=== PATIENT | male | born 1940 | race Two or more races ===

== ENCOUNTER 2024-08-25 12:16 | Inpatient (IN) | payer OTHER ==
[~2024-08-25] VITALS: Ht 152.4 cm; Wt 63.5 kg
[2024-08-25] MEDS ORDERED: LOSARTAN POTASS25 MG PO (12:56)
--- NOTE | 2024-08-25 12:58 | NUR ---
PTE ALERTA Y ORIENTADO X3 REFIERE VENIR CON REFERIDO DEL DR SINGH KIM POR ULCERA EN TYSHAWN DE PIE DERECHO PARA ADMICION. SE MIDEN S/V Y SE UBICA.
[2024-08-25] MEDS ORDERED: PIPERACILLIN/TAZOBACTAM SODIUM 3.375 GM VIAL IV ONE ×2 (13:45→14:16)
[2024-08-25] MEDS ORDERED: FAMOtidine 10 MG/ML (4ML VIAL) IV ONE (13:45)
[2024-08-25] MEDS ORDERED: FAMOTIDINE/PF 20 MG/2 ML VIAL ONE (14:16)
--- NOTE | 2024-08-25 14:27 | NUR ---
SE REALIZA LAB Y SE ADMINISTRA [place] RANDOLPH ORDEN MEDICA BAJO MEDIDAS ASEPTICAS. SE ORIENTA PTE QUIEN REFIERE ENTENDER Y ACEPTAR.
[2024-08-25 15:03] LABS: HEMATOCRIT 38.3 % (39.0-48.0); HEMOGLOBIN 13.3 g/dL (13-16.00); MEAN CELL VOLUME 85.8 fL (80.0-100.00); MEAN CORPUSCULAR HEMOGLOBIN 29.7 pg (27.00-32.0); MEAN CORPUSCULAR HGB CONC 34.7 g/dl (32.0-36.0); PLATELET COUNT 368 K/uL (150-450); RED BLOOD COUNT 4.47 M/uL (4.00-6.00); RED CELL DISTRIBUTION WIDTH 13.1 % (11.5-14.5)
[2024-08-25 15:21] LABS: ALBUMIN 3.3 gm/dL (3.4-5.0); BILIRUBIN TOTAL 0.59 mg/dL (0.3-1.2); CALCIUM 9.6 mg/dL (8.5-10.1); CREATININE SERUM 0.9 mg/dL (0.70-1.30); GFR 80.2; POTASSIUM 4.55 mEq/L (3.5-5.1); TOTAL PROTEIN 7.3 gm/dL (6.4-8.2)
[2024-08-25 15:48] LABS: INR 1.05; PARTIAL THROMBOPLASTIN TIME 28.2 SECONDS (22.0-34.0); PROTHROMBIN TIME 11.4 SECONDS (9.0-11.5)
[2024-08-25] MEDS ORDERED: VANCOMYCIN HCL 1,000 MG VIAL IV SCH (17:59)
[2024-08-25] MEDS ORDERED: ACETAMINOPHEN 500 MG GEL..CAP PO PRN (18:00)
[2024-08-25] MEDS ORDERED: INSULIN LISPRO 1,000 UNIT/10 ML UNITS SUBCUTANEO PRN (18:00)
[2024-08-25] MEDS ORDERED: DEXTROSE 50 % IN WATER 0.5 G/ML DISP.SYRIN IV PRN (18:00)
[2024-08-25] MEDS ORDERED: 0.9 % SODIUM CHLORIDE 1,000 ML IV SCH (18:00)
[2024-08-25] MEDS ORDERED: PIPERACILLIN/TAZOBACTAM SODIUM 3.375 GM in 0.9 % SODIUM CHLORIDE 100 ML IV SCH (18:00)
[2024-08-25 20:37] LABS: PHOSPHOROUS 3.1 mg/dL (2.5-4.9)
[2024-08-25 20:39] LABS: C-REACTIVE PROTEIN 5.45 MG/DL (0.00-0.29)
[2024-08-25 21:15] LABS: PH,URINE 7.5 (5.0-8.0); URINE APPEARANCE Clear; URINE BILIRRUBIN Negative (NEGATIVE); URINE BLOOD Negative; URINE COLOR Yellow; URINE KETONE Negative (NEGATIVE); URINE LEUKOCYTE Negative; URINE NITRATE Negative; URINE PROTEIN Negative (NEGATIVE)
[2024-08-25 21:18] LABS: URINE BACTERIA 8.5 uL (0.0-1933); URINE EPITHELIAL CELLS 2.5 uL (0.0-38.8); URINE WBC 4.4 uL (0.0-23.2)
[2024-08-25 21:22] LABS: URINE GLUCOSE >=1000 MG/DL (NEGATIVE)
[2024-08-26 00:27] VITALS: BP 129/53
[2024-08-26 08:00] VITALS: BP 146/81; O2SAT 93
[2024-08-26] MEDS ORDERED: ENOXAPARIN SODIUM 40 MG/0.4 ML SYRINGE SUBCUTANEO SCH (09:00)
[2024-08-26] MEDS ORDERED: FAMOTIDINE/PF 20 MG in 0.9 % SODIUM CHLORIDE 8 ML IV PUSH SCH (09:00)
[2024-08-26] MEDS ORDERED: INSULIN GLARGINE,HUM.REC.ANLOG 1,000 UNITS/10 ML UNITS SUBCUTANEO SCH (09:00)
[2024-08-26] MEDS ORDERED: LOSARTAN POTASSIUM 25 MG TABLET PO SCH (09:00)
[2024-08-26] MEDS ORDERED: GABAPENTIN 300 MG CAPSULE PO SCH (09:00)
[2024-08-26] MEDS ORDERED: DEXTROSE 50 % IN WATER 0.5 G/ML VIAL IV PRN (13:00)
[2024-08-26 18:00] VITALS: BP 162/63; O2SAT 99
[2024-08-26] MEDS ORDERED: BENZONATATE 200 MG CAPSULE PO SCH (18:21)
[2024-08-26] MEDS ORDERED: GUAIFEN/DEXTROMETHORPHAN/PE 10 ML BLIST.PACK PO SCH (18:22)
[2024-08-26] MEDS ORDERED: hydrALAZINE HCL 20 MG VIAL IV PRN (18:45)
[2024-08-27 02:13] VITALS: BP 173/80; O2SAT 97
[2024-08-27 06:19] LABS: HEMATOCRIT 30.7 % (39.0-48.0); HEMOGLOBIN 10.6 g/dL (13-16.00); MEAN CELL VOLUME 87.2 fL (80.0-100.00); MEAN CORPUSCULAR HEMOGLOBIN 30.1 pg (27.00-32.0); MEAN CORPUSCULAR HGB CONC 34.5 g/dl (32.0-36.0); PLATELET COUNT 291 K/uL (150-450); RED BLOOD COUNT 3.52 M/uL (4.00-6.00); RED CELL DISTRIBUTION WIDTH 12.7 % (11.5-14.5)
[2024-08-27 06:20] LABS: ALBUMIN 1.8 gm/dL (3.4-5.0); BILIRUBIN TOTAL 0.44 mg/dL (0.3-1.2); CREATININE SERUM 0.64 mg/dL (0.70-1.30); GFR 118.86; GLOBULINA 2.1 G/DL (2.4-3.5); MAGNESIUM 1.6 mg/dL (1.8-2.4); PHOSPHOROUS 2.5 mg/dL (2.5-4.9); POTASSIUM 3.06 mEq/L (3.5-5.1); TOTAL PROTEIN 3.9 gm/dL (6.4-8.2)
[2024-08-27 07:02] LABS: C-REACTIVE PROTEIN 3.15 MG/DL (0.00-0.29)
[2024-08-27 07:05] LABS: CALCIUM 6.2 mg/dL (8.5-10.1)
[2024-08-27] MEDS ORDERED: DEXTROSE 5%-LACTATED RINGERS 1,000 ML IV SCH (13:45)
[2024-08-27] MEDS ORDERED: MAGNESIUM SULFATE/D5W 100 ML IV NR (16:00)
[2024-08-27] MEDS ORDERED: AMINO ACIDS 1 EACH TABLET PO SCH (17:00)
[2024-08-27] MEDS ORDERED: POTASSIUM CHLORIDE IN WATER 100 ML IV NR (17:00)
[2024-08-27] MEDS ORDERED: NIFEDIPINE 30 MG TAB.SA.OSM PO SCH (17:00)
[2024-08-27 18:25] VITALS: BP 132/69; O2SAT 99
[2024-08-28 02:32] VITALS: BP 146/75; O2SAT 95
[2024-08-28 08:30] VITALS: BP 114/53
[2024-08-28] MEDS ORDERED: INSULIN LISPRO 1,000 UNIT/10 ML UNITS SUBCUTANEO PRN (10:00)
[2024-08-28] MEDS ORDERED: DEXTROSE 5 % IN WATER 1,000 ML IV SCH (10:00)
[2024-08-28] MEDS ORDERED: PIPERACILLIN/TAZOBACTAM SODIUM 3.375 GM VIAL IV ONE (15:57)
[2024-08-28 17:01] VITALS: BP 148/72; O2SAT 99
[2024-08-29 00:58] VITALS: BP 134/63; O2SAT 95
[2024-08-29 08:16] VITALS: BP 116/70
[2024-08-29 08:47] LABS: BASO % 0.6 % (0.1-1.2); EOS # 0.38 (0.04-0.54); EOS % 4.5 % (0.7-7.0); HEMATOCRIT 33.2 % (40.1-51.0); HEMOGLOBIN 11.2 g/dL (13.7-17.5); LYMPH # 1.55 (1.18-3.74); LYMPH % 18.5 % (19.3-53.1); MEAN CORPUSCULAR HEMOGLOBIN 29.3 pg (25.6-32.2); MONO # 0.63 (0.24-0.82); MONO % 7.5 % (4.7-12.5); NEUT # 5.71 (1.56-6.13); NEUT % 68.4 % (34.0-71.1); PLATELET COUNT 359 K/uL (163-369); RED BLOOD COUNT 3.82 M/uL (4.63-6.08); RED CELL DISTRIBUTION WIDTH 12.3 % (11.6-14.4)
[2024-08-29 09:24] LABS: ALBUMIN 2.4 gm/dL (3.4-5.0); BILIRUBIN TOTAL 0.47 mg/dL (0.3-1.2); CALCIUM 8.1 mg/dL (8.5-10.1); CREATININE SERUM 1.01 mg/dL (0.70-1.30); GFR 70.21; GLOBULINA 2.9 G/DL (2.4-3.5); POTASSIUM 4.45 mEq/L (3.5-5.1); TOTAL PROTEIN 5.3 gm/dL (6.4-8.2)
[2024-08-29 09:26] LABS: C-REACTIVE PROTEIN 3.68 MG/DL (0.00-0.29)
[2024-08-29 18:53] VITALS: BP 139/65; O2SAT 97
[2024-08-29] MEDS ORDERED: SODIUM CHLORIDE 0.45 % 1,000 ML IV SCH (22:00)
[2024-08-30 01:36] VITALS: BP 123/66; O2SAT 99
[2024-08-30 08:30] VITALS: BP 121/58
[2024-08-30 19:00] VITALS: BP 144/50; O2SAT 95
[2024-08-31 00:59] VITALS: BP 120/70; O2SAT 96
[2024-08-31] MEDS ORDERED: FAMOTIDINE/PF 20 MG/2 ML VIAL ONE (08:03)
[2024-08-31] MEDS ORDERED: PIPERACILLIN/TAZOBACTAM SODIUM 3.375 GM VIAL IV ONE (08:04)
[2024-08-31 08:35] VITALS: BP 124/65; O2SAT 95
[2024-08-31] MEDS ORDERED: INSULIN LISPRO 1,000 UNIT/10 ML UNITS SUBCUTANEO SCH (12:00)
[2024-08-31 12:45] LABS: COVID-19 AG NEGATIVE (NEGATIVE)
[2024-08-31 19:58] VITALS: BP 151/66
[2024-09-01 02:32] VITALS: BP 115/58; O2SAT 94
[2024-09-01 07:08] LABS: BASO % 0.5 % (0.1-1.2); HEMATOCRIT 33.9 % (40.1-51.0); HEMOGLOBIN 11.4 g/dL (13.7-17.5); LYMPH # 1.04 (1.18-3.74); LYMPH % 10.2 % (19.3-53.1); MEAN CORPUSCULAR HEMOGLOBIN 29.2 pg (25.6-32.2); MONO # 0.64 (0.24-0.82); MONO % 6.3 % (4.7-12.5); NEUT # 8.32 (1.56-6.13); NEUT % 81.4 % (34.0-71.1); PLATELET COUNT 373 K/uL (163-369); RED BLOOD COUNT 3.91 M/uL (4.63-6.08); RED CELL DISTRIBUTION WIDTH 12.9 % (11.6-14.4)
[2024-09-01 08:03] LABS: ALBUMIN 2.4 gm/dL (3.4-5.0); BILIRUBIN TOTAL 0.38 mg/dL (0.3-1.2); CALCIUM 8.1 mg/dL (8.5-10.1); CREATININE SERUM 0.87 mg/dL (0.70-1.30); GFR 83.4; MAGNESIUM 2.2 mg/dL (1.8-2.4); PHOSPHOROUS 3.7 mg/dL (2.5-4.9); POTASSIUM 4.36 mEq/L (3.5-5.1); TOTAL PROTEIN 5.4 gm/dL (6.4-8.2)
[2024-09-01 08:04] LABS: C-REACTIVE PROTEIN 2.36 MG/DL (0.00-0.29)
[2024-09-01 08:21] VITALS: BP 125/57
[2024-09-01] MEDS ORDERED: FAMOtidine 20 MG TABLET PO SCH (09:00)
[2024-09-01] MEDS ORDERED: CEFTRIAXONE SODIUM 2,000 MG VIAL IV SCH (17:00)
[2024-09-01 17:35] VITALS: BP 128/80
[2024-09-01 17:37] VITALS: BP 128/68
[2024-09-02 01:44] VITALS: BP 124/62; O2SAT 94
[2024-09-02 08:32] VITALS: BP 125/55; O2SAT 95
[2024-09-02 18:25] VITALS: BP 145/66; O2SAT 95
[2024-09-03 01:33] VITALS: BP 119/62; O2SAT 95
[2024-09-03 07:28] LABS: BASO % 0.7 % (0.1-1.2); EOS # 0.26 (0.04-0.54); EOS % 3.1 % (0.7-7.0); HEMATOCRIT 33.1 % (40.1-51.0); LYMPH # 1.51 (1.18-3.74); LYMPH % 17.7 % (19.3-53.1); MEAN CORPUSCULAR HEMOGLOBIN 29.1 pg (25.6-32.2); MONO # 0.85 (0.24-0.82); NEUT # 5.81 (1.56-6.13); NEUT % 68.3 % (34.0-71.1); PLATELET COUNT 340 K/uL (163-369); RED BLOOD COUNT 3.78 M/uL (4.63-6.08)
[2024-09-03 08:28] LABS: ALBUMIN 2.4 gm/dL (3.4-5.0); BILIRUBIN TOTAL 0.36 mg/dL (0.3-1.2); CALCIUM 8.3 mg/dL (8.5-10.1); CREATININE SERUM 0.92 mg/dL (0.70-1.30); GFR 78.19; PHOSPHOROUS 2.6 mg/dL (2.5-4.9); POTASSIUM 4.51 mEq/L (3.5-5.1); TOTAL PROTEIN 5.4 gm/dL (6.4-8.2)
[2024-09-03 09:43] VITALS: BP 144/72; O2SAT 95
[2024-09-03 17:50] VITALS: BP 167/74
[2024-09-04 01:28] VITALS: BP 141/52
[2024-09-04 08:38] VITALS: BP 135/67; O2SAT 94
[2024-09-04] MEDS ORDERED: SILVER SULFADIAZINE 50 GM,ZINC OXIDE 30 GM,NYSTATIN 30 GM TOP SCH (12:00)
[2024-09-04] MEDS ORDERED: FLUCONAZOLE IN NACL,ISO-OSM 200 MG/100 ML PIGGYBAG IV STA (16:36)
[2024-09-04] MEDS ORDERED: FLUCONAZOLE IN NACL,ISO-OSM 50 ML IV SCH (17:00)
[2024-09-04] MEDS ORDERED: Procardia Xl 30MG TA PO (17:24)
[2024-09-04] MEDS ORDERED: LOSARTAN POTASS25 MG PO (17:24)
[2024-09-04] MEDS ORDERED: CLOTRIMAZOLE-BE15 G1 TOP (17:24)
[2024-09-04] MEDS ORDERED: GABAPENTIN300 MG PO (17:24)
[2024-09-04 18:49] VITALS: BP 108/66
[2024-09-04 18:53] VITALS: BP 114/54
[2024-09-05 01:10] VITALS: BP 132/69
[2024-09-05 08:00] VITALS: BP 155/78; O2SAT 96
[2024-09-05] MEDS ORDERED: INSULIN LISPRO 1,000 UNIT/10 ML UNITS SUBCUTANEO SCH (08:00)
== END 2024-09-05 07:51 | disposition home or self-care (01) | DRG 629 ==
LOC: ER 12:16 → MEDJ 18:20
PROVIDERS: General Practice; Internal Medicine Infectious Disease; ADMIT Internal Medicine; ATTEND Internal Medicine
PROC: B54DZZZ Ultrasonography of Bilateral Lower Extremity Veins (ICD-10-PCS; 2024-08-25)
PROC: 0JDQ0ZZ Extraction of Right Foot Subcutaneous Tissue and Fascia, Open Approach (ICD-10-PCS; 2024-08-26)
PROC: B44HZZZ Ultrasonography of Bilateral Lower Extremity Arteries (ICD-10-PCS; 2024-08-26)
PROC: BQ3LZZZ Magnetic Resonance Imaging (MRI) of Right Foot (ICD-10-PCS; 2024-08-29)
PROC: 047K3DZ Dilation of Right Femoral Artery with Intraluminal Device, Percutaneous Approach (ICD-10-PCS; principal; 2024-09-01)
PROC: 0JDQ0ZZ Extraction of Right Foot Subcutaneous Tissue and Fascia, Open Approach (ICD-10-PCS; 2024-09-01)
PROC: 047R3ZZ Dilation of Right Posterior Tibial Artery, Percutaneous Approach (ICD-10-PCS; 2024-09-01)
DX: E11.621 Type 2 diabetes mellitus with foot ulcer (principal); L03.115 Cellulitis of right lower limb; L97.519 Non-pressure chronic ulcer of other part of right foot with unspecified severity; E11.628 Type 2 diabetes mellitus with other skin complications; Z79.4 Long term (current) use of insulin; I10 Essential (primary) hypertension; E78.5 Hyperlipidemia, unspecified; B96.89 Other specified bacterial agents as the cause of diseases classified elsewhere; E11.51 Type 2 diabetes mellitus with diabetic peripheral angiopathy without gangrene; I70.201 Unspecified atherosclerosis of native arteries of extremities, right leg; D64.9 Anemia, unspecified
CPT/HCPCS: 73221